=== PATIENT | female | born 2000 | race Hispanic/Latino ===

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

== ENCOUNTER 2020-06-20 21:34 | Emergency (ER) | payer OTHER ==
[2020-06-20 21:55] LABS: APPEARANCE,URINE Clear (CLEAR); BILIRUBIN,URINE Negative (NEGATIVE); COLOR,URINE Yellow (YELLOW); GLUCOSE, URINE (UA) Negative (NEGATIVE); KETONES,URINE Negative (NEGATIVE); LEUKOCYTE ESTERASE ,URINE Moderate (NEGATIVE); NITRATE,URINE Negative (NEGATIVE); OCCULT BLOOD,URINE Negative (NEGATIVE); PH,URINE 7.5 (5.0-8.0); PROTEIN,URINE Negative (NEGATIVE)
[2020-06-20 21:58] LABS: HCG,QUAL RESULT NEGATIVE (NEGATIVE)
[2020-06-20 22:03] LABS: RBC,URINE 0-1 /HPF (0-1)
[2020-06-20 22:04] LABS: BACTERIA,URINE Few /HPF (None Seen); SQUAMOUS EPITHELIAL CELL,UR Few /HPF (0-2)
[2020-06-20] MEDS ORDERED: CEFTRIAXONE SODIUM 500 MG VIAL ONE (22:44)
[2020-06-20] MEDS ORDERED: AZITHROMYCIN 250 MG TABLET PO ONE (22:45)
[2020-06-20] MEDS ORDERED: LIDOCAINE HCL-MPF 1% 2ML VIAL ONE (22:45)
== END 2020-06-20 22:55 | disposition home or self-care (01) ==
LOC: EDH 21:34
DX: N39.0 Urinary tract infection, site not specified (principal)
CPT/HCPCS: 81001; 81025; 87088; 87486; 87797; 96372; 99283; J0696; J3490

== ENCOUNTER 2024-04-05 18:33 | Emergency (ER) | payer OTHER ==
[~2024-04-05] VITALS: Ht 160 cm; Wt 86.2 kg
[2024-04-05 18:55] LABS: BASOPHILS # (AUTO) 0.08 K/uL (0.00-0.20); BASOPHILS % (AUTO) 0.7 % (0.0-5.0); EOSINOPHILS # (AUTO) 0.26 K/uL (0.00-0.70); EOSINOPHILS % (AUTO) 2.3 % (0.0-8.0); HEMATOCRIT 43.7 % (36-48); IMMATURE GRANULOCYTE ABSOLUTE 0.06 K/uL (0-1); LYMPHOCYTES # (AUTO) 3.3 K/uL (1.0-4.8); LYMPHOCYTES % (AUTO) 29.4 % (21.0-51.0); MEAN CORPUSCULAR HEMOGLOBIN 30.9 pg (27.0-33.0); MEAN CORPUSCULAR HGB CONC 33.6 g/dL (32.0-36.0); MEAN CORPUSCULAR VOLUME 91.8 fL (79-99); MONOCYTES # (AUTO) 1.1 K/uL (0.1-1.0); MONOCYTES % (AUTO) 9.6 % (3.0-13.0); NEUTROPHILS # (AUTO) 6.4 K/uL (1.8-7.7); NEUTROPHILS % (AUTO) 57.5 % (40.0-77.0); PLATELET COUNT (AUTO) 353 K/uL (130-400); RED BLOOD CELL COUNT(AUTO) 4.76 MIL/uL (4.00-5.50); RED CELL DISTRIBUTION WIDTH 12.8 % (11.0-15.5); WHITE BLOOD COUNT (AUTO) 11.2 K/uL (4.8-10.8)
[2024-04-05 18:56] VITALS: BP 142/88; PULSE 111; RESP 20; O2SAT 98
[2024-04-05 19:02] LABS: APPEARANCE,URINE CLOUDY (CLEAR); BILIRUBIN,URINE NEGATIVE (NEGATIVE); COLOR,URINE LIGHT-YELLOW (YELLOW); GLUCOSE, URINE (UA) NEGATIVE (NEGATIVE); KETONES,URINE NEGATIVE (NEGATIVE); LEUKOCYTE ESTERASE ,URINE 75 Leu/uL (NEGATIVE); NITRATE,URINE NEGATIVE (NEGATIVE); OCCULT BLOOD,URINE LARGE (NEGATIVE); PROTEIN,URINE NEGATIVE (NEGATIVE); UROBILINOGEN,URINE 0.2 mg/dL (0.2-1.0)
[2024-04-05 19:06] LABS: ADD UA MICROSCOPIC YES
[2024-04-05 19:09] LABS: BACTERIA,URINE FEW /HPF (None Seen); MUCUS,URINE RARE LPF (None Seen); OTHER CASTS, URINE 1 /LPF (None Seen); SQUAMOUS EPITHELIAL CELL,UR FEW /HPF (0-2)
[2024-04-05 19:22] LABS: CREATININE 0.9 mg/dL (0.5-1.0); POTASSIUM 3.5 mmol/L (3.5-5.1)
[2024-04-05] MEDS: CEFTRIAXONE 1G VIAL IVPB ONE (19:27)
[2024-04-05] MEDS ORDERED: CEPH500B PO (19:27)
== END 2024-04-05 19:34 | disposition home or self-care (01) ==
LOC: EDH 18:33
DX: O23.41 Unspecified infection of urinary tract in pregnancy, first trimester (principal); N39.0 Urinary tract infection, site not specified; Z3A.01 Less than 8 weeks gestation of pregnancy; O46.91 Antepartum hemorrhage, unspecified, first trimester
CPT/HCPCS: 99285; 96374; 76801; 80048; 84702; 85025; 87088; 81001; 36415; J0696

== ENCOUNTER → 2024-04-10 | Emergency (ER) | payer OTHER ==
[~2024-04-10] VITALS: Ht 160 cm; Wt 88.5 kg
[~2024-04-10] MED LIST changes: +CEPH500B PO; -IOHEXOL-350 75 ML VIAL IV ONE
[2024-04-10 16:45] LABS: HEMATOCRIT 39.1 % (36-48); MEAN CORPUSCULAR HEMOGLOBIN 30.4 pg (27.0-33.0); MEAN CORPUSCULAR VOLUME 89.5 fL (79-99); RED BLOOD CELL COUNT(AUTO) 4.37 MIL/uL (4.00-5.50); RED CELL DISTRIBUTION WIDTH 13.1 % (11.0-15.5); WHITE BLOOD COUNT (AUTO) 11.2 K/uL (4.8-10.8)
[2024-04-10 17:02] LABS: CREATININE 0.6 mg/dL (0.5-1.0); POTASSIUM 3.8 mmol/L (3.5-5.1)
[2024-04-10 17:06] LABS: ALBUMIN 3.6 g/dL (3.5-5.0); BILIRUBIN,TOTAL 0.3 mg/dL (0.2-1.0); TOTAL PROTEIN, SERUM 7.5 g/dL (6.0-8.3)
[2024-04-10 17:55] LABS: APPEARANCE,URINE CLEAR (CLEAR); BILIRUBIN,URINE NEGATIVE (NEGATIVE); COLOR,URINE COLORLESS (YELLOW); GLUCOSE, URINE (UA) NEGATIVE (NEGATIVE); KETONES,URINE NEGATIVE (NEGATIVE); LEUKOCYTE ESTERASE ,URINE 25 Leu/uL (NEGATIVE); NITRATE,URINE NEGATIVE (NEGATIVE); OCCULT BLOOD,URINE LARGE (NEGATIVE); PH,URINE 6.5 (5.0-8.0); PROTEIN,URINE NEGATIVE (NEGATIVE); UROBILINOGEN,URINE 0.2 mg/dL (0.2-1.0)
[2024-04-10 17:56] LABS: ADD UA MICROSCOPIC YES; HCG,QUALITATIVE URINE POSITIVE (NEGATIVE)
[2024-04-10 17:58] LABS: BACTERIA,URINE RARE /HPF (None Seen); MUCUS,URINE RARE LPF (None Seen); OTHER CASTS, URINE 1 /LPF (None Seen); SQUAMOUS EPITHELIAL CELL,UR FEW /HPF (0-2)
[2024-04-10] MEDS: ACETAMINOPHEN 325 MG TAB PO STA (18:11)
[2024-04-10 19:18] VITALS: BP 118/71; PULSE 78; RESP 16; O2SAT 98
== END ==
LOC: EDH 16:21
DX: O20.0 Threatened abortion (principal); Z79.2 Long term (current) use of antibiotics; Z3A.01 Less than 8 weeks gestation of pregnancy
CPT/HCPCS: 36415; 76801; 80053; 81001; 81025; 84702; 84703; 85027; 86850; 86900; 86901

== ENCOUNTER 2024-04-22 22:40 | Observation (INO) | payer MEDICAID ==
[~2024-04-22] VITALS: Ht 162.6 cm; Wt 88.5 kg
[2024-04-22] MEDS: PANTOPRAZOLE 40 MG/VIAL IVP ONE (23:03)
[2024-04-22] MEDS: LACTATED RINGERS 1000ML 1,000 ML IV ONE (23:03)
[2024-04-22] MEDS: ONDANSETRON 4MG INJ IVP ONE (23:03)
[2024-04-22 23:07] LABS: BASOPHILS # (AUTO) 0.08 K/uL (0.00-0.20); BASOPHILS % (AUTO) 0.6 % (0.0-5.0); EOSINOPHILS # (AUTO) 0.35 K/uL (0.00-0.70); EOSINOPHILS % (AUTO) 2.5 % (0.0-8.0); HEMATOCRIT 37.9 % (36-48); IMMATURE GRANULOCYTE ABSOLUTE 0.04 K/uL (0-1); LYMPHOCYTES # (AUTO) 5.1 K/uL (1.0-4.8); LYMPHOCYTES % (AUTO) 35.9 % (21.0-51.0); MEAN CORPUSCULAR HEMOGLOBIN 30.8 pg (27.0-33.0); MEAN CORPUSCULAR HGB CONC 33.5 g/dL (32.0-36.0); MEAN CORPUSCULAR VOLUME 91.8 fL (79-99); MONOCYTES % (AUTO) 6.9 % (3.0-13.0); NEUTROPHILS # (AUTO) 7.6 K/uL (1.8-7.7); NEUTROPHILS % (AUTO) 53.8 % (40.0-77.0); PLATELET COUNT (AUTO) 432 K/uL (130-400); RED BLOOD CELL COUNT(AUTO) 4.13 MIL/uL (4.00-5.50); RED CELL DISTRIBUTION WIDTH 13.3 % (11.0-15.5); WHITE BLOOD COUNT (AUTO) 14.2 K/uL (4.8-10.8)
[2024-04-22 23:19] LABS: CREATININE 0.9 mg/dL (0.5-1.0); POTASSIUM 4.3 mmol/L (3.5-5.1)
[2024-04-22 23:21] LABS: INR 0.97 (0.85-1.15); PROTHROMBIN TIME 10.5 SEC (9.6-11.6)
[2024-04-22 23:25] LABS: ALBUMIN 3.2 g/dL (3.5-5.0); BILIRUBIN,TOTAL 0.8 mg/dL (0.2-1.0); MAGNESIUM 1.9 mg/dL (1.80-2.40); TOTAL PROTEIN, SERUM 7.1 g/dL (6.0-8.3)
[2024-04-22] MEDS ORDERED: ACETAMINOPHEN 500 MG TABLET PO ONE (23:30)
[2024-04-22] MEDS: LACTATED RINGERS 1000ML 1,000 ML IV SCH (23:40)
[2024-04-22] MEDS: CEFAZOLIN SODIUM 2 GM VIAL IVPB STA (23:41)
[2024-04-22] MEDS ORDERED: ALBUMIN (HUMAN) 5% 500 ML IV ONE (23:55)
[2024-04-22] MEDS ORDERED: LIDOCAINE PF 100MG/5ML (2%) SYRINGE 5ML ONE (23:57)
[2024-04-22] MEDS ORDERED: DEXAMETHASONE SOD PHOSPHATE 10MG/ML 1ML VIAL ONE (23:57)
[2024-04-22] MEDS ORDERED: MIDAZOLAM HCL 1 MG/ML 2ML VIAL ONE (23:57)
[2024-04-22] MEDS ORDERED: ONDANSETRON 4MG INJ ONE (23:57)
[2024-04-22] MEDS ORDERED: GLYCOPYRROLATE 0.2 MG/ML 5 ML VIAL ONE (23:57)
[2024-04-22] MEDS ORDERED: PROPOFOL 10 MG/ML 20ML VIAL IV ONE (23:58)
[2024-04-22] MEDS ORDERED: SUCCINYLCHOLINE CHLORIDE 20 MG/ML 10 ML VIAL ONE (23:58)
[2024-04-22] MEDS ORDERED: ROCURONIUM BROMIDE 10MG/1ML 5ML VL ONE (23:58)
[2024-04-22] MEDS ORDERED: NEOSTIGMINE METHYLSULFATE 1MG/ML IV ONE (23:58)
[2024-04-22] MEDS ORDERED: FENTANYL CITRATE PF 50 MCG/1 ML 2ML VIAL ONE (23:59)
[2024-04-23] VITALS (24 sets, daily range): BP systolic 90–120; BP diastolic 45–79; PULSE 96–121; RESP 18–22; O2SAT 99
[2024-04-23] MEDS ORDERED: ONDANSETRON 4MG INJ IVP ONE
[2024-04-23] MEDS ORDERED: MORPHINE 2 MG SYG IVP ONE
[2024-04-23 00:01] LABS: B-TYPE NATRIURETIC PEPTIDE 7 pg/mL (0-100)
[2024-04-23] MEDS ORDERED: KETAMINE 50MG/ML SYRINGE 50 MG/ML DISP.SYRIN ONE (00:36)
[2024-04-23] MEDS ORDERED: BUPIVACAINE/PF 0.5% 10ML VIAL ONE (00:56)
[2024-04-23 00:57] LABS: ABG BASE EXCESS -7.5 mmol/L (-2.0-3.0); ABG HCO3 18.4 mmol/L (21.0-28.0); ABG OXYGEN SATURATION 99.3 % (95.0-99.0); ABG PCO2 39 mmHg (32-45); ABG PH 7.294 (7.350-7.450); CARBON MONOXIDE 0.2; DEVICE COMMENT PS; HHb 0.7; PO2, ARTERIAL BG 447.1 mmHg (83.0-108.0)
[2024-04-23] MEDS: BUPIVACAINE/PF 0.5% 10ML VIAL IJ ONE (01:00)
[2024-04-23] MEDS ORDERED: FENTANYL CITRATE PF 50 MCG/1 ML 5ML AMP IV ONE (01:04)
[2024-04-23] MEDS ORDERED: ROCURONIUM BROMIDE 10MG/1ML 5ML VL ONE (01:09)
[2024-04-23] MEDS ORDERED: SUGAMMADEX SODIUM 200 MG/2 ML VIAL IV ONE (01:34)
[2024-04-23] MEDS ORDERED: MEPERIDINE-PF 25 MG/ML SYG ONE (02:18)
[2024-04-23] MEDS: MEPERIDINE-PF 25 MG/ML SYG ONE (02:21)
[2024-04-23] MEDS: ONDANSETRON 4MG INJ ONE (02:22)
[2024-04-23] MEDS ORDERED: ONDANSETRON 4MG INJ IVP PRN (03:00)
[2024-04-23] MEDS ORDERED: MEPERIDINE-PF 75 MG/ML SYG IM PRN (03:00)
[2024-04-23] MEDS ORDERED: ACETAMINOPHEN 325 MG TAB PO PRN (03:00)
[2024-04-23] MEDS ORDERED: BISACODYL 10 MG SUPP.RECT RC PRN (03:00)
[2024-04-23] MEDS: LACTATED RINGERS 1000ML 1,000 ML IV SCH (03:37)
[2024-04-23] MEDS: IBUPROFEN 600 MG TABLET PO SCH (05:00)
[2024-04-23] MEDS: MEPERIDINE-PF 50 MG/ML SYG IM PRN (05:09)
[2024-04-23] MEDS: PROMETHAZINE HCL 25 MG/ML 1ML AMPULE IM PRN (05:10)
[2024-04-23 07:31] LABS: HEMATOCRIT 25.2 % (36-48); MEAN CORPUSCULAR HEMOGLOBIN 30.3 pg (27.0-33.0); MEAN CORPUSCULAR HGB CONC 33.3 g/dL (32.0-36.0); RED BLOOD CELL COUNT(AUTO) 2.77 MIL/uL (4.00-5.50); RED CELL DISTRIBUTION WIDTH 16.2 % (11.0-15.5); WHITE BLOOD COUNT (AUTO) 18.2 K/uL (4.8-10.8)
[2024-04-23 14:16] LABS: HEMATOCRIT 21.3 % (36-48); MEAN CORPUSCULAR HGB CONC 32.4 g/dL (32.0-36.0); MEAN CORPUSCULAR VOLUME 92.6 fL (79-99); RED BLOOD CELL COUNT(AUTO) 2.3 MIL/uL (4.00-5.50); RED CELL DISTRIBUTION WIDTH 16.9 % (11.0-15.5); WHITE BLOOD COUNT (AUTO) 11.8 K/uL (4.8-10.8)
[2024-04-23 21:15] LABS: HEMATOCRIT 26.8 % (36-48); MEAN CORPUSCULAR HEMOGLOBIN 30.9 pg (27.0-33.0); MEAN CORPUSCULAR HGB CONC 32.8 g/dL (32.0-36.0); RED BLOOD CELL COUNT(AUTO) 2.85 MIL/uL (4.00-5.50); WHITE BLOOD COUNT (AUTO) 18.1 K/uL (4.8-10.8)
[2024-04-24 03:00] VITALS: BP 109/65; PULSE 107; RESP 20
[2024-04-24 07:04] LABS: HEMATOCRIT 24.5 % (36-48); MEAN CORPUSCULAR HEMOGLOBIN 30.3 pg (27.0-33.0); MEAN CORPUSCULAR HGB CONC 33.1 g/dL (32.0-36.0); MEAN CORPUSCULAR VOLUME 91.8 fL (79-99); RED BLOOD CELL COUNT(AUTO) 2.67 MIL/uL (4.00-5.50); RED CELL DISTRIBUTION WIDTH 15.7 % (11.0-15.5); WHITE BLOOD COUNT (AUTO) 14.6 K/uL (4.8-10.8)
[2024-04-24 08:00] VITALS: BP 133/80; PULSE 115; RESP 20
[2024-04-24] MEDS: SIMETHICONE 80 MG TAB.CHEW PO PRN (08:35)
[2024-04-24] MEDS: DOCUSATE SODIUM 100 MG CAP PO PRN (08:35)
[2024-04-24] MEDS: ACETAMINOPHEN WITH CODEINE 1 TAB TAB PO PRN (08:37)
[2024-04-24 11:30] VITALS: BP 107/65; PULSE 102; RESP 18
[2024-04-27] MEDS ORDERED: FURO20TA6 PO (12:48)
== END 2024-04-24 13:15 | disposition home or self-care (01) ==
LOC: EDH 22:40 → EDHIP 22:41 → INTOOBSV 22:41 → EDHIP 04-23 00:10 → UNDOADMIN 04-23 00:10 → EDHIP 04-23 04:55 → WSH 04-23 04:55
PROVIDERS: ADMIT Internal Medicine; ATTEND Internal Medicine
DX: O00.90 Unspecified ectopic pregnancy without intrauterine pregnancy (principal); O00.101 Right tubal pregnancy without intrauterine pregnancy; K66.1 Hemoperitoneum; Z3A.01 Less than 8 weeks gestation of pregnancy; Z79.899 Other long term (current) drug therapy
CPT/HCPCS: 96374; 99285; 82550; 83735; 84484; 80053; 83880; 85025; 85610; 85730; 86850; 86900; 36415 ×3; 76801; 96375; 93005; 59120; 96372 ×3; 36430; 82435; 82947; 84132; 84295; 82803; 85027 ×4; 85018; 86901; 86923 ×2; 83605; 88305; 36600; P9045; J7120 ×4; J3010 ×2; J1100; J0330; J3490 ×6; J2250; J2405 ×3; J2710; J2470; J0690; G0378 ×19; J7030 ×2; A4344; A4215; P9016 ×2; J2550 ×3; J0665 ×2; J2175 ×5; G0168; A4649 ×4; A4930; A4223; A4222; A4216; J2001; J2704